=== PATIENT | female | born 1995 | race Caucasian/White ===

== ENCOUNTER 2022-03-14 20:23 | Emergency (ER) | payer OTHER ==
[2022-03-14 20:27] VITALS: BMI 21.9
[2022-03-14 21:39] VITALS: BP 112/74; RESP 19; TEMP 97
[2022-03-14 22:02] VITALS: PULSE 76
== END 2022-03-14 23:30 | disposition home or self-care (01) ==
LOC: JER 20:23
DX: O99.012 Anemia complicating pregnancy, second trimester (principal); O26.892 Other specified pregnancy related conditions, second trimester; R42 Dizziness and giddiness; Z3A.22 22 weeks gestation of pregnancy
CPT/HCPCS: 76801-TC; 99284-25

== ENCOUNTER 2022-07-12 06:25 | Inpatient (IN) | payer OTHER ==
[2022-07-12] MEDS ORDERED: ELECTROLYTE-148 SOLN 500 ML IV ONE (07:00)
[2022-07-12] MEDS ORDERED: CITRIC ACID/SODIUM CITRATE 30 ML UNIT-DOSE CUP PO ONE (07:00)
[2022-07-12] MEDS ORDERED: ELECTROLYTE-148 SOLN 1,000 ML IV SCH (07:30)
[2022-07-12 07:33] VITALS: BMI 26.7
[2022-07-12] MEDS ORDERED: morphine SULFATE/PF 1 MG/2 ML (2cc Syringe - QUVA) ONE (08:07)
[2022-07-12] MEDS ORDERED: FENTANYL CITRATE/PF 50 MCG/ML VIAL ONE (08:07)
[2022-07-12] MEDS ORDERED: ONDANSETRON 4 MG/2 ML VIAL IVPB PRN (09:29)
[2022-07-12] MEDS: OXYTOCIN 20 UNITS in 0.9% NS 20 UNIT/1,000 ML INFUS.BAG IV SCH ×2 (11:25→23:11)
[2022-07-12] MEDS ORDERED: OXYTOCIN 20 UNITS in 0.9% NS 20 UNIT/1,000 ML INFUS.BAG IV ONE (11:27)
[2022-07-12] MEDS: ACETAMINOPHEN 1000 MG/100 ML BAG IVPB SCH ×3 (16:41→21:35)
[2022-07-12] MEDS ORDERED: HEPARIN NA (PORCINE) 5,000 UNITS/ML 1ML VIAL SQ SCH (18:00)
[2022-07-12] MEDS: IBUPROFEN 800 MG/8 ML IJ IVPB SCH ×2 (18:26→19:02)
[2022-07-12] MEDS ORDERED: ACETAMINOPHEN INJECTION 100 ML IVPB ONE (21:32)
[2022-07-12 22:17] VITALS: RESP 18
[2022-07-13] MEDS: IBUPROFEN 800 MG/8 ML IJ IVPB SCH (01:40)
[2022-07-13] MEDS: ACETAMINOPHEN 1000 MG/100 ML BAG IVPB SCH ×2 (04:46→09:31)
[2022-07-13 07:10] LABS: BASO % 0.4 % (0-2.0); EOS % 1.8 % (0-4.5); HEMATOCRIT 27.6 % (32.4-45.2); HEMOGLOBIN 9.2 GM/dL (10.7-15.3); LYMPH % 10.4 % (8-40); MCH 26.9 pg (25.7-33.7); MCHC 33.2 g/dl (32.0-36.0); MEAN CELL VOLUME 81.2 fl (80-96); MEAN PLT VOLUME 8.3 fl (7.5-11.1); MONO % 6.5 % (3.8-10.2); NEUT % 80.9 % (42.8-82.8); PLATELET COUNT 222 10^3/uL (134-434); RDW 16.1 % (11.6-15.6); WHITE BLOOD COUNT 13.6 K/mm3 (4.0-10.0)
[2022-07-13] MEDS ORDERED: oxyCODONE HCL 5 MG TABLET PO PRN (08:00)
[2022-07-13] MEDS ORDERED: BISACODYL 10 MG SUPP.RECT RC PRN (09:29)
[2022-07-13] MEDS ORDERED: IBUPROFEN 600 MG TABLET (FP) PO PRN (09:29)
[2022-07-13] MEDS: HEPARIN NA (PORCINE) 5,000 UNITS/ML 1ML VIAL SQ SCH ×2 (09:32→21:33)
[2022-07-13] MEDS: FERROUS SO4 325 MG TABLET (FP) PO SCH ×2 (11:11→21:33)
[2022-07-13] MEDS: SIMETHICONE 80 MG TAB.CHEW (FP) PO PRN (20:02)
[2022-07-13] MEDS: SENNOSIDES/DOCUSATE COMBO (SENNA PLUS) TABLET (UD) PO PRN (21:34)
[2022-07-14] MEDS: ACETAMINOPHEN 325 MG TABLET (FP) PO PRN ×3 (01:38→18:35)
[2022-07-14] MEDS: SIMETHICONE 80 MG TAB.CHEW (FP) PO PRN ×5 (01:38→21:17)
[2022-07-14] MEDS: IBUPROFEN *ORAL SUSPENSION* 100 MG/5 ML PO PRN ×3 (05:29→21:18)
[2022-07-14] MEDS: FERROUS SO4 325 MG TABLET (FP) PO SCH ×2 (10:26→21:17)
[2022-07-14] MEDS: HEPARIN NA (PORCINE) 5,000 UNITS/ML 1ML VIAL SQ SCH ×2 (10:26→21:30)
[2022-07-14] MEDS: SENNOSIDES/DOCUSATE COMBO (SENNA PLUS) TABLET (UD) PO PRN (21:22)
[2022-07-15] MEDS: SIMETHICONE 80 MG TAB.CHEW (FP) PO PRN (06:16)
[2022-07-15] MEDS: ACETAMINOPHEN 325 MG TABLET (FP) PO PRN (06:17)
[2022-07-15] MEDS ORDERED: IBUPROFEN 600 MG TABLET (FP) PO PRN (08:34)
[2022-07-15] MEDS: HEPARIN NA (PORCINE) 5,000 UNITS/ML 1ML VIAL SQ SCH (09:18)
[2022-07-15] MEDS: FERROUS SO4 325 MG TABLET (FP) PO SCH (09:18)
[2022-07-15 10:24] VITALS: BP 117/81; PULSE 64; TEMP 98.1
== END 2022-07-15 12:05 | disposition home or self-care (01) | DRG 540 ==
LOC: JLDR 06:25 → J3W 11:30
PROVIDERS: ADMIT Obstetrics & Gynecology; ATTEND Obstetrics & Gynecology
PROC: 10D00Z1 Extraction of Products of Conception, Low, Open Approach (ICD-10-PCS; principal; 2022-07-12)
DX: O36.63X0 Maternal care for excessive fetal growth, third trimester, not applicable or unspecified (principal); Z3A.39 39 weeks gestation of pregnancy; Z37.0 Single live birth
CPT/HCPCS: 36415; 85025; 88307-TC; 94010; J1644